=== PATIENT | male | born 1950 | race Caucasian/White ===

== ENCOUNTER 2020-03-29 08:45 | Emergency (ER) | payer SELFPAY ==
[~2020-03-29] VITALS: Ht 177.8 cm; Wt 68.0 kg
[2020-03-29 10:41] LABS: BASOPHILS % 1.1 % (0.0-2.0); EOSINOPHILS % 6.5 % (0.0-5.0); HEMATOCRIT. 38.5 % (42.0-52.0); HEMOGLOBIN. 12.8 g/dL (14.0-18.0); LYMPHOCYTES % 26.4 % (20.0-50.0); MEAN CORPUSCULAR HEMOGLOBIN 33.7 pg (28.0-32.0); MEAN PLATELET VOLUME 8.5 fl (7.4-10.4); MONOCYTES % 8.5 % (2.0-8.0); NEUTROPHILS % 57.5 % (40.0-76.0); PLATELET 219 x1000/uL (130-400); RED BLOOD CELL COUNT 3.81 mill/uL (4.7-6.1); RED CELL DISTRIBUTION WIDTH 12.5 % (11.6-14.6)
[2020-03-29 10:41] LABS: CLARITY URINE CLEAR (CLEAR); COLOR URINE YELLOW (YELLOW); KETONES URINE NEGATIVE (NEGATIVE); LEUKOCYTE ESTERASE URINE NEGATIVE (NEGATIVE); NITRITE URINE NEGATIVE (NEGATIVE); OCCULT BLOOD URINE TRACE (NEGATIVE); PROTEIN URINE NEGATIVE (NEGATIVE); SPECIFIC GRAVITY URINE 1.017 (1.005-1.030); UROBILINOGEN URINE 0.2 E.U./dL (0.2-1.0)
[2020-03-29 10:54] LABS: CHLORIDE 108 mEq/L (98-107)
[2020-03-29 10:59] LABS: ETHANOL BLOOD < 10 mg/dL
[2020-03-29] MEDS: KCL 10MEQ/50ML PREMIX 50 ML IV ONE ×2 (12:30→13:27)
[2020-03-29 13:30] VITALS: BP 177/87
[2020-03-30 13:42] LABS: *AMPHETAMINES SCREEN URINE NEGATIVE (NEGATIVE); *BARBITURATES SCREEN URINE NEGATIVE (NEGATIVE); *COCAINE SCREEN URINE NEGATIVE (NEGATIVE)
[2020-03-30 13:43] LABS: *BENZODIAZEPINES SCREEN URINE NEGATIVE (NEGATIVE); METHADONE URINE SCREEN NEGATIVE (NEGATIVE); OPIATES URINE SCREEN NEGATIVE (NEGATIVE); PHENCYCLIDINE URINE SCREEN NEGATIVE (NEGATIVE)
[2020-03-30 13:44] LABS: CANNABINOID URINE SCREEN NEGATIVE (NEGATIVE)
== END 2020-03-29 13:59 | disposition left against medical advice (07) ==
LOC: ER 08:57 → EDBD 08:57 → ER 13:59 → CANRESERV 14:48 → ENRESERV 14:48 → CANBEDREQ 03-30 13:41
DX: G40.909 Epilepsy, unspecified, not intractable, without status epilepticus (principal); B69.0 Cysticercosis of central nervous system; E87.6 Hypokalemia; R03.0 Elevated blood-pressure reading, without diagnosis of hypertension; D72.819 Decreased white blood cell count, unspecified; D64.9 Anemia, unspecified
CPT/HCPCS: 36415; 70450; 71045; 80053; 80305; 80320; 81003; 82140; 83605; 85025; 93005; 99285; J3480; G0480

== ENCOUNTER 2020-07-29 18:31 | Emergency (ER) | payer MEDICAID ==
[~2020-07-29] VITALS: Ht 172.7 cm; Wt 72.0 kg
[2020-07-29 18:35] VITALS: BP 110/55
[2020-07-29] MEDS ORDERED: CARBAMAZEPINE 200MG TABLET PO ONE (20:00)
== END 2020-07-30 00:24 | disposition home or self-care (01) ==
LOC: ER 19:00
DX: Z76.0 Encounter for issue of repeat prescription (principal); G40.909 Epilepsy, unspecified, not intractable, without status epilepticus
CPT/HCPCS: 99283